=== PATIENT | male | born 1965 | race Caucasian/White ===

== ENCOUNTER → 2016-12-09 | Outpatient (REF) | LOC: ZLAB.WCH 15:38 | DX: Z01.89 Encounter for other specified special examinations (principal) ==

== ENCOUNTER → 2016-12-11 | Outpatient (REF) ==
[2016-12-11 19:01] LABS: TOTAL IRON BINDING CAPACITY 295 ug/dL (261-462)
[2016-12-11 19:25] LABS: FERRITIN 166 ng/mL (18-464)
== END ==
LOC: ZLAB.WCH 18:31
PROVIDERS: Internal Medicine
DX: Z01.89 Encounter for other specified special examinations (principal)

== ENCOUNTER 2017-09-23 10:59 | Day surgery (SDC) | payer BC ==
[~2017-09-23] VITALS: Ht 211 cm; Wt 95.7 kg
[2017-09-23] MEDS ORDERED: MOTRIN 800800 MG/TAB PO (11:27)
[2017-09-23] MEDS ORDERED: TYLENOL 500MG500 MG PO (11:28)
[2017-09-23 11:29] VITALS: BP 125/74; PULSE 62; TEMP 97.7
[2017-09-23] MEDS ORDERED: NORCO 325 MG-101 TAB PO (11:29)
[2017-09-23 14:07] VITALS: BP 128/71; PULSE 78; TEMP 97.5
[2017-09-23] MEDS ORDERED: AMOXICILLIN 8751 TAB PO (14:20)
[2017-09-23 14:22] VITALS: BP 118/69; PULSE 68
[2017-09-23] MEDS ORDERED: NORCO 325 MG-7.1 TAB PO (14:23)
[2017-09-23 14:37] VITALS: BP 119/71; PULSE 66
[2017-09-23 14:52] VITALS: BP 121/73; PULSE 65
[2017-09-23 15:22] VITALS: BP 119/77; PULSE 71
== END 2017-09-23 15:44 | disposition home or self-care (01) ==
LOC: SDCO 10:59
DX: S61.243A Puncture wound with foreign body of left middle finger without damage to nail, initial encounter (principal); W45.8XXA Other foreign body or object entering through skin, initial encounter; G89.21 Chronic pain due to trauma; L08.89 Other specified local infections of the skin and subcutaneous tissue; Z87.891 Personal history of nicotine dependence; G47.33 Obstructive sleep apnea (adult) (pediatric)
CPT/HCPCS: J0690; J1885; J2250; J2405; J2704; J2795; J3010; J7120

== ENCOUNTER → 2019-02-11 | Outpatient (REF) ==
[~2019-02-11] MED LIST: AMOXICILLIN 8751 TAB PO; MOTRIN 800800 MG/TAB PO; NORCO 325 MG-101 TAB PO; NORCO 325 MG-7.1 TAB PO; TYLENOL 500MG500 MG PO
== END ==
LOC: ZLAB.WCH 14:10
DX: Z01.89 Encounter for other specified special examinations (principal)

== ENCOUNTER → 2021-05-22 | Outpatient (REF) ==
[2021-05-22 16:44] LABS: CLOSTRIDIUM DIFF A/B NEG; CLOSTRIDIUM DIFF A/B INTERP No C.diff present
== END ==
LOC: ZLAB.WCH 15:21
PROVIDERS: Nurse Practitioner
DX: Z01.89 Encounter for other specified special examinations (principal)